=== PATIENT | female | born 1975 | race Caucasian/White ===

== ENCOUNTER 2020-09-17 06:52 | Outpatient (NON) | payer OTHER, SELFPAY ==
[2020-09-17 19:01] LABS: SARS-CoV-2 RNA PCR Negative
== END 2020-09-17 06:53 ==
PROVIDERS: PCP Family Medicine; Visit Provider Physician Assistant Medical
DX: Z20.828 Contact with and (suspected) exposure to other viral communicable diseases (principal); R19.7 Diarrhea, unspecified
CPT/HCPCS: 87635; C9803; U0003

== ENCOUNTER → 2021-11-25 01:47 | Outpatient (CLI) | payer OTHER, SELFPAY ==
[2021-11-26 03:58] LABS: SARS-CoV-2 RNA PCR Negative
== END ==
PROVIDERS: PCP Family Medicine; Visit Provider Physician Assistant Medical
DX: R68.89 Other general symptoms and signs (principal); Z20.822 Contact with and (suspected) exposure to COVID-19
CPT/HCPCS: C9803; U0003; U0005

== ENCOUNTER 2023-04-27 12:13 | Outpatient (CLI) | payer OTHER, SELFPAY | END 2023-04-27 12:14 | disposition home or self-care (01) | LOC: ANHLAB 12:16 | PROVIDERS: PCP Family Medicine; Visit Provider Internal Medicine Infectious Disease | DX: T14.8XXA Other injury of unspecified body region, initial encounter (principal) | CPT/HCPCS: 87040 ==

== ENCOUNTER 2023-04-27 12:50 | Observation (INO) | payer OTHER, SELFPAY ==
[2023-04-27] VITALS (15 sets, daily range): BP systolic 109–134; BP diastolic 66–86; PULSE 83–108; RESP 16–18; TEMP 36.4–37.1; O2SAT 75–100; BMI 25.5
--- NOTE | ~2023-04-27 | CT_ITS ---
EXAMINATION: CT abdomen pelvis w con DATE: 04/27/2023 16:12 INDICATION: Left lower quadrant abdominal pain. Nausea, vomiting, and diarrhea. TECHNIQUE: Computed tomography (CT) of the abdomen and pelvis was performed with 100 mL Omnipaque 350 intravenous contrast. Automated exposure control and iterative reconstruction technique were employe d. The dose-length product was 337.58 mGy-cm. COMPARISON: None. FINDINGS: The visualized portions of the lung bases demonstrate mild atelectasis. There is a 5 mm nod ule in right lower lobe, likely benign. No pleural effusion. The heart size is normal. No pericardial effusion. There is a right breast implant. The liver, gallbladder, spleen, pancreas, adrenal glands, and kidneys are normal. The appendix is normal. There is diffuse wall thickening of the colon, consi stent with colitis. There is liquid stool in the colon correlating with the symptom of diarrhea. Ther e are no pathologically enlarged lymph nodes. There is no free intraperitoneal fluid. There is severe lower lumbar spondylosis. IMPRESSION: 1. Pancolitis. Reviewed, dictated and finalized at location L. IMPRESSION: 1. Pancolitis.
[2023-04-27 15:24] LABS: Basophils Percent Auto 0.1 % (0.2-1.2); Hematocrit 40.8 % (37.0-47.0); Hemoglobin 13.7 g/dL (12.0-15.0); Immature Granulocyte Absolute 0.03 K/mm3 (0.00-0.031); Immature Granulocyte Percent A 0.3 % (0-0.5); Lymphocytes Absolute Auto 0.73 K/mm3 (0.9-3.2); Lymphocytes Percent Auto 7.9 % (18.3-44.2); Mean Corpuscular HGB Conc 33.6 g/dl (32-36); Mean Corpuscular Volume 89.3 fl (80-100); Mean Platelet Volume 9.6 fl (7.4-10.4); Monocytes Absolute Auto 0.5 K/mm3 (0.1-0.6); Monocytes Percent Auto 5.2 % (2.6-8.5); Neutrophils Percent Auto 86.5 % (45.5-73.1); Platelet Count Result 241 k/mm3 (150-375); Red Blood Count 4.57 M/mm3 (4.2-5.4); Red Cell Distribution Width 13.7 % (11.5-14.5); White Blood Count 9.3 K/mm3 (4.5-10.0)
[2023-04-27 15:30] LABS: Alanine Aminotransferase 49 U/L (6-35); Albumin Level 4.7 g/dL (3.5-5.1); Alkaline Phosphatase 94 U/L (38-126); Anion Gap 12 mmol/L (8-16); Aspartate Amino Transferase 47 U/L (14-36); Bilirubin,Total 0.5 mg/dL (0.2-1.3); Blood Urea Nitrogen 9 mg/dL (7-17); Calcium 9.1 mg/dL (8.4-10.2); Carbon Dioxide 24 mmol/L (22-30); Chloride 99 mmol/L (98-107); Estimated CRCL calculation 73 ml/min; Estimated Glomerular Filt Rate > 60; Glucose 94 mg/dL (65-110); Lipase 82 U/L (23-300); Potassium 3.9 mmol/L (3.4-5.0); Sodium 135 mmol/L (137-145)
--- NOTE | 2023-04-27 15:41 | ED.GENADULT ---
HPI - General Adult General Chief complaint: Nausea/Vomiting/Diarrhea Stated complaint: bit by mouse in [place], c/o N/V/D Time Seen by Provider: 04/27/23 14:55 Source: patient Mode of arrival: ambulatory Limitations: no limitations History of Present Illness HPI narrative: This is a 47-year-old female presents to the ED with chief complaint of diarrhea x4 days. Patient states that she returned from a trip to [facility] about a week ago. Patient was put on ciprofloxacin for an animal bite that occurred while she was in [facility]. States she took a few days of Cipro and stopped taking about a day prior to her onset of diarrhea. Patient states that she has been having around 6-10 episodes of loose stools per day. States that she has not been able to eat much. States that there is pain just before she has to defecate and this pain is relieved afterwards. Denies bloody stools.. Denies nausea, vomiting, abdominal pain, fevers, chills. Related Data Home Medications Medication Instructions Recorded Confirmed venlafaxine 37.5 mg 37.5 mg PO DAILY 09/16/20 03/08/23 capsule,extended release 24 hr (Effexor XR) everolimus (antineoplastic) 5 mg 5 mg PO DAILY 08/17/22 03/08/23 tablet exemestane 25 mg tablet 25 mg PO DAILY 08/17/22 03/08/23 Allergies Allergy/AdvReac Type Severity Reaction Status Date / Time chlorhexidine Allergy Mild Rash Verified 04/21/23 15:50 Penicillins Allergy Mild swelling Verified 04/21/23 15:50 cyclobenzaprine AdvReac Mild Nausea and Verified 04/21/23 15:50 Vomiting Review of Systems Review of Systems: CONSTITUTIONAL: Denies fever, chills, or sweats. EYES: Denies visual changes, redness, or discharge. ENT: Denies rhinorrhea, congestion, sore throat, or otalgia. CARDIOVASCULAR: Denies chest pain, palpitations, or edema. RESPIRATORY: Denies cough or dyspnea. GASTROINTESTINAL: See HPI GENITOURINARY: Denies dysuria or hematuria. SKIN: Denies rash or itching. MUSCULOSKELETAL: Denies back pain, joint pain, or myalgia. NEUROLOGIC: Denies headache, numbness, dizziness, or weakness. PSYCHIATRIC: Denies anxiety or depression. [facility] Family History Family History Mother Diabetes mellitus Family history of cardiovascular disease Social History Social History (Updated 04/21/23 @ 15:51 by Huber Irwin MA) Smoking status: Never smoker Alcohol intake: current Substance use: never Substance use type: does not use Lack of Transportation: No Lack of Food: Never True Current Housing: I Have Housing Concerned About Future Housing: No Difficulty Paying Gas/Electric Bills: No Difficulty Paying for Meds: No Currently Unemployed: No Education: Master's Degree or Higher Difficulty w/ Childcare or Family Care: No Occupation/Education: occupation Additional occupation/education comments: [employer] Exam Narrative: GENERAL: Appears ill. Appears dry. Cooperative and conversational. Pleasant. HEAD: Normocephalic, atraumatic. EYES: PERRLA and EOMI. ENT: Nares clear, no rhinorrhea or epistaxis. Mucous membranes moist. Oropharynx without tonsillar hypertrophy exudate or other lesions. NECK: Supple. No adenopathy or masses. CHEST: No respiratory distress. Clear to auscultation. No wheezes rales or rhonchi HEART: Regular rate and rhythm. No murmur heard. Normal peripheral pulses. ABDOMEN: Mildly tender in the left lower quadrant. Soft, otherwise nontender, nondistended, normal active bowel sounds. Negative peritoneal signs. MSK: Normal range of motion. No edema. SKIN: Warm, dry, no rash. NEURO: Alert and oriented x3. No focal deficits. PSYCH: Normal mood and affect. Course Vital Signs Vital signs: Vital Signs Temperature 97.6 F 04/27/23 13:10 Pulse Rate 108 H 04/27/23 13:10 Respiratory Rate 16 04/27/23 13:10 Blood Pressure 118/81 04/27/23 13:10 Pulse Oximetry 98
[2023-04-27] MEDS: SODIUM CHLORIDE 0.9% IV 1,000 ML 999 ML IV CONT ×2 (15:53→15:54)
[2023-04-27 17:04] LABS: Add Urine Microscopic? YES; Appearance Urine Clear (Clear); Bacteria Urine None Seen /hpf; Bilirubin Urine Negative (Negative); Blood Urine Negative (Negative); Color Urine Yellow (Yellow); Glucose Urine UA Negative (Negative); Ketones Urine 1+ mg/dL (Negative); Leukocyte Esterase Ur Trace LEU/UL (Negative); Need Manual Microscopic Reviewed; Nitrate Urine Negative (Negative); Non Pathogenic Casts 0-2; Protein Urine Negative (Negative); RBC Urine 0-2 /hpf (0-2); Specific Grav Ur 1.035 (1.001-1.035); Squamous Epithelial Cell Urine None seen /hpf (Few); Urobilinogen Urine 0.2 mg/dL (<2.0); WBC Urine 0-5 /hpf; pH Urine 6.5 (5.0-9.0)
[2023-04-27 17:12] LABS: Toxigenic C. Diff NEGATIVE (NEGATIVE)
[2023-04-27] MEDS: ONDANSETRON INJ 4 MG/2 ML VIAL IV PUSH (17:45)
[2023-04-27] MEDS: SODIUM CHLORIDE 0.9% IV 1,000 ML 125 ML IV CONT ×2 (17:45→20:43)
--- NOTE | 2023-04-27 21:48 | PM.IMHP ---
H&P: HPI History of Present Illness Date/Time: 04/27/23 18:00 Chief Complaint: Diarrhea. Narrative: This is a pleasant 47-year-old female with stage IV breast cancer who presented to the emergency department via private vehicle from home for evaluation of diarrhea. 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 While in [facility] she was bitten by a mouse on the shoulder and she took the ciprofloxacin that she was given empirically if needed. She took that for 4 or 5 days and was told last Wednesday that she did not need to take it any longer given no signs of infection. The following day she developed watery, yellow diarrhea of which she has had at least 10 episodes of day if not more. She has cramping abdominal discomfort as well which seems to occur before her episodes of diarrhea and does improved somewhat following bowel movements. She has not noticed any blood or mucus in the stool. No one at home has similar symptoms and to her knowledge no one on the trip either. Her appetite has not been great but she denies vomiting. She has not had fever, chills, or sweats. She has no history of colitis or C diff. She was afebrile on arrival to the ED with stable vital signs. CBC and CMP were unremarkable aside from a sodium of 135 and an AST and ALT of [address] of the abdomen and pelvis showed pancolitis. C diff by PCR was negative. In the ED she was given IV crystalloids and she is being admitted in this setting for further hydration as she continues to feel quite weak and has ongoing abdominal discomfort. Review of Systems Review of Systems: Twelve systems were reviewed and are negative except for as per HPI. [facility] Past Medical History Medical History (Updated 04/27/23 @ 21:59 by Teri Prasad PA-C) Asthma Stage IV breast cancer in female Diagnosed at stage II and 2011 status post right mastectomy and chemotherapy. Breast cancer recurred approximately 6 years ago with metastatic disease to the lung for which she is on oral medications. Surgical History Surgical History (Updated 04/27/23 @ 21:56 by Teri Prasad PA-C) History of adenoidectomy History of bilateral oophorectomy (2017) History of right mastectomy (2010) Family History Family History Mother Diabetes mellitus Family history of cardiovascular disease Social History Social History (Updated 04/27/23 @ 21:57 by Teri Prasad PA-C) Social History: Surrogate medical decision maker: Regino Carlos, spouse. Code status: Full code. Smoking status: Never smoker Second hand tobacco smoke exposure: No Alcohol intake: current Drinks per week: 1 Alcohol use details: Social alcohol use in moderation. Substance use: never Substance use type: does not use Lack of Transportation: No Lack of Food: Never True Current Housing: I Have Housing Concerned About Future Housing: No Difficulty Paying Gas/Electric Bills: No Difficulty Paying for Meds: No Currently Unemployed: No Education: Master's Degree or Higher Difficulty w/ Childcare or Family Care: No Additional living arrangements comments: Lives with spouse and children in [place]. 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 Spiritual care concerns: No Meds Home Medications and Allergies Home Medications Medication Instructions Recorded Confirmed Type venlafaxine 37.5 mg 37.5 mg PO DAILY 09/16/20 03/08/23 History capsule,extended release 24 hr (Effexor XR) everolimus (antineoplastic) 5 mg 5 mg PO DAILY 08/17/22 03/08/23 History tablet exemestane 25 mg tablet 25 mg PO DAILY 08/17/22 03/08/23 History naproxen 500 mg tablet 500 mg PO BID #60 tabs 09/18/22 03/08/23 Rx benzonatate 200 mg cap
[2023-04-27] MEDS: metroNIDAZOLE 500 MG/ISO 100ML 500 MG/100 ML BAG 100 MG IVPB (22:30)
[2023-04-27] MEDS: ACETAMINOPHEN 325 MG TABLET 650 MG PO (22:30)
[2023-04-27] MEDS: levoFLOXacin 750 MG/D5W 150 ML 750 MG/150 ML BAG 100 MG IVPB (23:39)
[2023-04-28 06:00] VITALS: BP 109/73; PULSE 74; RESP 18; TEMP 36.4; O2SAT 100
[2023-04-28] MEDS: metroNIDAZOLE 500 MG/ISO 100ML 500 MG/100 ML BAG 100 MG IVPB ×3 (06:06→21:09)
[2023-04-28 06:25] LABS: Hematocrit 36.3 % (37.0-47.0); Hemoglobin 11.9 g/dL (12.0-15.0); Mean Corpuscular HGB Conc 32.8 g/dl (32-36); Mean Corpuscular Hemoglobin 29.7 pg (26-34); Mean Corpuscular Volume 90.5 fl (80-100); Mean Platelet Volume 9.9 fl (7.4-10.4); Platelet Count Result 198 k/mm3 (150-375); Red Blood Count 4.01 M/mm3 (4.2-5.4); Red Cell Distribution Width 13.9 % (11.5-14.5); White Blood Count 4.7 K/mm3 (4.5-10.0)
[2023-04-28 06:43] LABS: Alanine Aminotransferase 40 U/L (6-35); Albumin Level 3.9 g/dL (3.5-5.1); Alkaline Phosphatase 81 U/L (38-126); Anion Gap 8 mmol/L (8-16); Aspartate Amino Transferase 45 U/L (14-36); Bilirubin,Total 0.4 mg/dL (0.2-1.3); Blood Urea Nitrogen 8 mg/dL (7-17); Calcium 8.4 mg/dL (8.4-10.2); Carbon Dioxide 24 mmol/L (22-30); Chloride 107 mmol/L (98-107); Estimated CRCL calculation 73 ml/min; Estimated Glomerular Filt Rate > 60; Glucose 82 mg/dL (65-110); Magnesium 2.1 mg/dL (1.6-2.3); Sodium 139 mmol/L (137-145)
[2023-04-28] MEDS: SODIUM CHLORIDE 0.9% IV 1,000 ML 125 ML IV CONT ×2 (08:37→16:45)
[2023-04-28] MEDS: ENOXAPARIN 40 MG/0.4 ML SYRINGE SUB-Q (08:37)
[2023-04-28 10:22] LABS: Hepatitis B Surface Antigen Negative (Negative)
[2023-04-28 10:28] LABS: HAV RESULT Negative (Negative); Hepatitis B Core IgM Result Negative (Negative)
[2023-04-28 10:39] LABS: Hepatitis C Virus Antibody Negative (Negative)
[2023-04-28 14:00] VITALS: BP 125/75; PULSE 74; RESP 16; TEMP 35.9; O2SAT 100
--- NOTE | 2023-04-28 14:35 | PM.IMPN ---
Progress Note: A&P Assessment and Plan (1) Pancolitis: Code(s): K51.00 - Ulcerative (chronic) pancolitis without complications Status: Acute Assessment and Plan: Patient recently [facility] however her symptoms started several days after returning and she has no known sick contacts. She did take 5 days of ciprofloxacin prior to onset of symptoms due to a mouse bite. C diff PCR negative. Giardia, Cryptosporidium, Campylobacter, and E coli negative. Salmonella/Legionella culture pending. Ova and parasites pending. Blood cultures pending, negative to date No personal or family history of IBD. Continue Levaquin and Flagyl. Continue IV fluids Clear liquid diet. Advance as tolerated Consider GI consultation if no improvement (2) Dehydration: Code(s): E86.0 - Dehydration Status: Acute Assessment and Plan: She is dehydrated from ongoing diarrhea the last 4 days. Continue with IV fluid rehydration until she is better tolerating diet (3) Elevated LFTs: Code(s): R79.89 - Other specified abnormal findings of blood chemistry Status: Acute Assessment and Plan: LFTs are mildly elevated. AST 45, ALT [address] with normal liver and gallbladder Hepatitis panel negative Suspect secondary to acute illness. Continue to trend LFTs (4) Asthma: Code(s): J45.909 - Unspecified asthma, uncomplicated Status: Acute Assessment and Plan: No acute issues. Continue maintenance inhalers and rescue inhaler as needed. (5) Stage IV breast cancer in female: Code(s): C50.919 - Malignant neoplasm of unspecified site of unspecified female breast Status: Acute Assessment and Plan: Continue exemestane and everolimus once brought from home. Subjective Date/time seen: 04/28/23 14:35 Interval history: Date of service: 04/28/2023 Ragini Carlos is a 39-year-old female with a history of stage IV breast cancer in asthma who is seen in follow-up for colitis. States she feels ?quite a bit better today.? She does endorse watery yellow/green diarrhea, 4-5 episodes since 7:00 a.m.. Reports there are some formed pieces, however mostly completely liquid. She has some lower abdominal tenderness and intermittent cramping which she rates as 3/10. States she begins cramping just prior to having another episode of diarrhea. Denies shortness breath, cough, or chest pain. Review of Systems Review of Systems: All systems reviewed & are unremarkable except as noted in HPI and below Exam Narrative: General: Well-nourished, well-appearing 47-year-old female, sitting up in bed, comfortable, NARD Neuro: awake, alert and oriented x4, speech clear, no focal neuro deficits noted HEENMT: normocephalic, atraumatic, EOMI, sclerae anicteric Respiratory: clear to auscultation bilaterally, nonlabored breathing Cardio: regular rate, regular rhythm with S1-S2 Abdomen: nondistended, normoactive bowel sounds, soft, slightly tender to palpation Extremities: no edema, erythema, or tenderness to palpation, DP pulses 2+ bilaterally Skin: no rashes or lesions, warm and dry Psych: appropriate mood and affect, judgment and insight intact Objective Data Vital Signs Vital Signs: Vital Signs - 24 hr 04/27/23 15:55 04/27/23 15:57 04/27/23 16:14 Temperature Pulse Rate 83 Respiratory Rate 18 Blood Pressure 116/77 116/77 Pulse Oximetry 100 75 L Oxygen Delivery 04/27/23 16:15 04/27/23 16:30 04/27/23 17:49 Temperature Pulse Rate Respiratory Rate Blood Pressure Pulse Oximetry 99 100 100 Oxygen Delivery 04/27/23 17:50 04/27/23 18:01 04/27/23 18:16 Temperature Pulse Rate Respiratory Rate Blood Pressure 119/86 125/78 116/69 Pulse Oximetry 99 99 99 Oxygen Delivery 04/27/23 21:10 04/27/23 22:00 04/27/23 21:15 Temperature 98.8 F Pulse Rate 87 Respiratory
[2023-04-28] MEDS: VENLAFAXINE HCL XR 37.5 MG CAP PO (15:12)
[2023-04-28 20:00] VITALS: PULSE 68; RESP 18; O2SAT 100
[2023-04-28] MEDS: FLUTICASONE PROP 44 MCG (*SP) 10.6 GM 2 PUFF INHALATION (20:09)
[2023-04-28 20:10] VITALS: PULSE 80; RESP 16
[2023-04-28 21:40] VITALS: BP 132/80; PULSE 68; RESP 18; TEMP 36.3; O2SAT 100
[2023-04-28] MEDS: levoFLOXacin 750 MG/D5W 150 ML 750 MG/150 ML BAG 100 MG IVPB (23:17)
--- NOTE | 2023-04-29 01:10 | PHAR ---
Verified: Exemestane 25 mg tablet (#7) TAKE 1 TAB PO DAILY AFTER BREAKFAST, & Everolimus 5mg TAB (#2)- TAKE 1 TAB PO DAILY in pharmacy and sent back to [facility]
[2023-04-29] MEDS: metroNIDAZOLE 500 MG/ISO 100ML 500 MG/100 ML BAG 100 MG IVPB (05:45)
[2023-04-29 06:00] VITALS: BP 119/73; PULSE 80; RESP 18; TEMP 36.8; O2SAT 99
[2023-04-29 06:40] LABS: Hematocrit 33.8 % (37.0-47.0); Hemoglobin 11.3 g/dL (12.0-15.0); Mean Corpuscular HGB Conc 33.4 g/dl (32-36); Mean Corpuscular Hemoglobin 29.6 pg (26-34); Mean Corpuscular Volume 88.5 fl (80-100); Mean Platelet Volume 9.6 fl (7.4-10.4); Platelet Count Result 202 k/mm3 (150-375); Red Blood Count 3.82 M/mm3 (4.2-5.4); Red Cell Distribution Width 13.7 % (11.5-14.5); White Blood Count 4.1 K/mm3 (4.5-10.0)
[2023-04-29 07:00] LABS: Alanine Aminotransferase 41 U/L (6-35); Albumin Level 3.7 g/dL (3.5-5.1); Alkaline Phosphatase 68 U/L (38-126); Anion Gap 8 mmol/L (8-16); Aspartate Amino Transferase 47 U/L (14-36); Bilirubin,Total 0.4 mg/dL (0.2-1.3); Blood Urea Nitrogen 3 mg/dL (7-17); Calcium 8.4 mg/dL (8.4-10.2); Carbon Dioxide 25 mmol/L (22-30); Chloride 106 mmol/L (98-107); Estimated CRCL calculation 84 ml/min; Estimated Glomerular Filt Rate > 60; Glucose 84 mg/dL (65-110); Sodium 139 mmol/L (137-145)
[2023-04-29] MEDS: ENOXAPARIN 40 MG/0.4 ML SYRINGE SUB-Q (08:10)
[2023-04-29] MEDS: MONTELUKAST SODIUM 10 MG TABLET PO (08:10)
[2023-04-29] MEDS: VENLAFAXINE HCL XR 37.5 MG CAP PO (08:10)
[2023-04-29] MEDS: FLUTICASONE PROP 44 MCG (*SP) 10.6 GM 2 PUFF INHALATION (08:32)
[2023-04-29] MEDS: SODIUM CHLORIDE 0.9% IV 1,000 ML 75 ML IV CONT (09:30)
--- NOTE | 2023-04-29 11:45 | PM.DS ---
DS: Admitting Diagnosis Discharge Date 04/29/23 1145 Admitting Diagnosis Pancolitis, infection by Campylobacter DS: Discharge Diagnosis Discharge Diagnosis (1) Pancolitis: Code(s): K51.00 - Ulcerative (chronic) pancolitis without complications Status: Acute Assessment and Plan: Patient recently traveled to [facility] however her symptoms started several days after returning and she has no known sick contacts. She did take 5 days of ciprofloxacin prior to onset of symptoms due to a mouse bite. C diff PCR negative. Giardia, Cryptosporidium, Campylobacter, and E coli negative. Salmonella/Legionella culture pending. Ova and parasites pending. Blood cultures pending, negative to date No personal or family history of IBD. Continue Levaquin and Flagyl. Continue IV fluids Clear liquid diet. Advance as tolerated Consider GI consultation if no improvement (2) Dehydration: Code(s): E86.0 - Dehydration Status: Acute Assessment and Plan: She is dehydrated from ongoing diarrhea the last 4 days. Continue with IV fluid rehydration until she is better tolerating diet (3) Elevated LFTs: Code(s): R79.89 - Other specified abnormal findings of blood chemistry Status: Acute Assessment and Plan: LFTs are mildly elevated. AST 45, ALT [address] with normal liver and gallbladder Hepatitis panel negative Suspect secondary to acute illness. Continue to trend LFTs (4) Asthma: Code(s): J45.909 - Unspecified asthma, uncomplicated Status: Acute Assessment and Plan: No acute issues. Continue maintenance inhalers and rescue inhaler as needed. (5) Stage IV breast cancer in female: Code(s): C50.919 - Malignant neoplasm of unspecified site of unspecified female breast Status: Acute Assessment and Plan: Continue exemestane and everolimus once brought from home. DS: Summary Hospital Course Hospital Course: Patient is a 47-year-old female with a past medical history of asthma, breast cancer Who presented to the ED with complaints of diarrhea. Patient was recently in [facility] and she was bit by a mouse on the shoulder. She took Cipro and got empirically treated immediately. She think came home she has been having some bowel movements with cramping that did not seem to improve. Stool cultures did come back as Campylobacter. Patient had been treated with Levaquin and Flagyl. Antibiotics were changed to azithromycin per stewardship. Patient denies any current chest pain, shortness a breath, nausea, vomiting, diarrhea or constipation. Patient had been given fluids and has been feeling better. LFTs were mildly elevated. Hepatitis panel negative. C diff was negative. Blood cultures have been negative to date. Patient did well through her treatment and is stable for discharge at this time. Status at Discharge Functional status at discharge: independent ambulation Overall status at discharge: patient is progressing back to baseline Time Spent with Patient Time attestation: Total time spent providing and/or coordinating discharge services: 40 minutes Specific discharge activities: Diagnostic testing, chart review, developing a treatment plan, education, care coordination documentation, physical exam, result review Exam Narrative: General: Well-nourished, well-appearing 47-year-old female, sitting up in bed, comfortable, NARD Neuro: awake, alert and oriented x4, speech clear, no focal neuro deficits noted HEENMT: normocephalic, atraumatic, EOMI, sclerae anicteric Respiratory: clear to auscultation bilaterally, nonlabored breathing Cardio: regular rate, regular rhythm with S1-S2 Abdomen: nondistended, normoactive bowel sounds, soft, slightly tender to palpation Extremities: no edema, erythema, or tenderness to palpation, DP pulses 2+ bilaterally Skin: no rashes or lesions, warm and dry Psych: appropriate mood and
[2023-04-29 14:00] VITALS: BP 126/78; PULSE 75; RESP 12; TEMP 36.2; O2SAT 100
== END 2023-04-29 16:20 | disposition home or self-care (01) ==
LOC: ANHED 17:33 → ANH3MEDSUR 20:28
PROVIDERS: Emergency Medicine; Physician Assistant; Admitting Provider Internal Medicine; Emergency Provider Physician Assistant; PCP Family Medicine; Visit Provider Physician Assistant
DX: K51.00 Ulcerative (chronic) pancolitis without complications (principal); E86.0 Dehydration; R79.89 Other specified abnormal findings of blood chemistry; J45.909 Unspecified asthma, uncomplicated; C50.911 Malignant neoplasm of unspecified site of right female breast; C78.00 Secondary malignant neoplasm of unspecified lung; Z90.11 Acquired absence of right breast and nipple; F10.90 Alcohol use, unspecified, uncomplicated; Z79.1 Long term (current) use of non-steroidal anti-inflammatories (NSAID); Z79.51 Long term (current) use of inhaled steroids; Z79.899 Other long term (current) drug therapy
CPT/HCPCS: 36415; 74177; 80053; 80074; 81001; 81025; 83690; 83735; 85025; 85027; 87040; 87045; 87177; 87209; 87269; 87272; 87427; 87493; 94640; 96361; 96365; 96366; 96367; 96372; 96375; 96376; 99285; A9270; G0378; J1650; J1956; J2405; J7030; Q9967